=== PATIENT | female | born 1985 | race Caucasian/White ===

== ENCOUNTER 2017-04-20 13:39 | Inpatient (IN) | payer SELFPAY ==
[2017-04-20] VITALS (9 sets, daily range): BP systolic 91–114; BP diastolic 55–71
[~2017-04-20] VITALS: Ht 167.6 cm; Wt 59.0 kg
--- NOTE | 2017-04-20 13:40 | NUR ---
BIB RA C/O RLQ ABD PAIN. PATIENT A/OX 4. ALSO C/O N/V. BREATHING EVEN, BUT LABORED. NO SOB. VITALS STABLE. SAFETY AND COMFORT MEASURES IN PLACE. AWAITING MD ORDERS .
[2017-04-20] MEDS ORDERED: HYDROMORPHONE 1 MG/1 ML DISP.SYRIN ONE ×2 (13:50→15:35)
[2017-04-20] MEDS ORDERED: ONDANSETRON HCL/PF 4 MG/2 ML VIAL ONE (13:50)
--- NOTE | 2017-04-20 13:50 | NUR ---
NEW IV STARTED ON LAC, 20 G. BLOOD DRAWN AND SENT TO LAB.
[2017-04-20 13:56] LABS: BASOPHILS % (AUTO) 0.2 % (0.0-2.0); EOSINOPHILS # (AUTO) 0.1 /CMM (0.0-0.7); EOSINOPHILS % (AUTO) 0.4 % (0.0-6.0); HEMATOCRIT 43 % (33-45); HEMOGLOBIN 14.6 g/dL (11.5-14.8); LYMPHOCYTES % (AUTO) 5.4 % (20.0-44.0); MEAN CORPUSCULAR HEMOGLOBIN 31 PG (26.0-33.0); MEAN CORPUSCULAR HGB CONC 34 g/dl (31.0-36.0); MEAN CORPUSCULAR VOLUME 92 fL (82-100); MONOCYTES # (AUTO) 1.7 /CMM (0.1-1.30); MONOCYTES % (AUTO) 8.8 % (2.0-12.0); NEUTROPHILS # (AUTO) 16.1 /CMM (1.8-8.9); NEUTROPHILS % (AUTO) 85.2 % (43.0-81.0); PLATELET COUNT (AUTO) 266 /CMM (150-450); RDW COEFFICIENT OF VARIATION 12.8 (11.5-15.0); RED BLOOD CELL COUNT(AUTO) 4.71 MIL/uL (4.0-5.2); WHITE BLOOD COUNT (AUTO) 18.9 K/uL (4.3-11.0)
[2017-04-20] MEDS ORDERED: HYDROMORPHONE INJ 2 MG/ML DISP.SYRIN IV ONE (14:00)
[2017-04-20] MEDS ORDERED: IV NS 0.9% 1,000 ML BAG IV ONE ×2 (14:00→15:30)
[2017-04-20] MEDS ORDERED: ONDANSETRON HCL/PF 4 MG/2 ML VIAL IVP ONE (14:00)
--- NOTE | 2017-04-20 14:02 | NUR ---
US TECH AT BEDSIDE.
[2017-04-20 14:08] LABS: INR 0.97 (0.87-1.13); PROTHROMBIN TIME 10.1 SECS (9.5-12.7)
[2017-04-20 14:10] LABS: ALBUMIN 4.1 g/dL (3.4-5.0); BILIRUBIN,DIRECT 0.2 mg/dL (0.0-0.2); BILIRUBIN,TOTAL 0.9 mg/dL (0.2-1.0); CALCIUM, SERUM 8.9 mg/dL (8.5-10.1); CREATININE 0.8 mg/dL (0.6-1.3); POTASSIUM 3.8 mmol/L (3.5-5.1); TOTAL PROTEIN, SERUM 7.4 g/dL (6.4-8.2)
--- NOTE | 2017-04-20 14:30 | NUR ---
urine obtained and sent to lab.
[2017-04-20] MEDS ORDERED: Magnesium 1GM/D5W 100ML PREMIX 200 ML IV ONE (14:36)
[2017-04-20 14:37] LABS: APPEARANCE,URINE Slightly Cloudy (CLEAR); BILIRUBIN,URINE Negative (NEGATIVE); BLOOD, URINE Negative Ery/uL (NEGATIVE); COLOR,URINE Yellow (YELLOW); KETONES,URINE Negative (NEGATIVE); LEUKOCYTE ESTERASE ,URINE Negative (NEGATIVE); NITRITE, URINE Negative (NEGATIVE); PROTEIN,URINE 30 mg/dl (NEGATIVE); UGLUCOSE Negative (NEGATIVE); UROBILINOGEN,URINE 0.2 EU/dL (0.2)
[2017-04-20 14:38] LABS: PH,URINE >9.0 (5.0-8.0)
[2017-04-20 14:40] LABS: BACTERIA,URINE Rare /HPF (None Seen); RBC,URINE 0-2 /HPF (0-2); SQUAMOUS EPITHELIAL CELL,UR Few /HPF (None Seen); WBC,URINE 0-2 /HPF (0-3)
[2017-04-20] MEDS ORDERED: IV NS 0.9% 250 ML IV ONE (14:50)
[2017-04-20] MEDS ORDERED: IOHEXOL-300 100 ML VIAL IV ONE (14:50)
[2017-04-20] MEDS ORDERED: ALBUTEROL FS 2.5 MG/3 ML VIAL.NEB CONTNEB ONE (15:00)
[2017-04-20] MEDS ORDERED: IPRATROPIUM NEB FS 0.5 MG/2.5 ML AMPUL.NEB NEB ONE (15:00)
--- NOTE | 2017-04-20 15:36 | NUR ---
PAGED DR. POWERS FOR CONSULT
[2017-04-20] MEDS: PIPERACILLIN /TAZOBACTAM 3.375 G in IV D5W 50 ML IV ONE ×2 (15:57→15:58)
--- NOTE | 2017-04-20 15:59 | NUR ---
OKAY TO INFUSE ZOSYN OVER 30 MINUTES PER EMELY PEGUERO.
--- NOTE | 2017-04-20 15:59 | NUR ---
Varun benoit in [facility] - 04/20/17 at 1605 by JOHANNA REPORT GIVEN TO Wilder HUYNH RN FOR CONTINUITY OF CARE ON MS 2
[2017-04-20] MEDS ORDERED: HYDROMORPHONE 1 MG/1 ML DISP.SYRIN IV ONE (16:00)
--- NOTE | 2017-04-20 16:05 | NUR ---
REPORT GIVEN TO ALBAN CHOU RN FOR CONTINUITY OF CARE ON MS 2
--- NOTE | 2017-04-20 16:16 | NUR ---
PATIENT TRANSPORTED TO ROOM 200 FOR ADMISSION VIA STRETCHER WITH EMT.
--- NOTE | 2017-04-20 16:30 | NUR ---
MS RN NOTES ADMITTED THIS PATIENT FROM ER, DX APPENDICITIS, PERFORATED, DR. MEDRANO NOTIFIED, AOX4, ON RA, NOT IN ANY DISTRESS, TOLERABLE PAIN ON ABDOMEN. NPO, LEFT AC G20 FLUSHES WELL, SITE CLEAR. AMBULATORY. UNIT ORIENTATION AND USE CALL LIGHT DONE, SAFETY MEASURES IN PLACE. WILL CONT TO MONITOR. PER ER STAFF, THEY NOTIFIED DR. PERLA POWERS FOR SURGICAL CONSULT.
[2017-04-20] MEDS: IV D5/0.45 NACL 1,000 ML IV PRN (17:52)
[2017-04-20] MEDS: MORPHINE SULFATE INJ 2 MG/ML DISP.SYRIN IV PRN (17:57)
[2017-04-20] MEDS ORDERED: Z GUARD REMEDY 2 OZ OINT TP PRN (18:00)
[2017-04-20] MEDS ORDERED: MAGNESIUM HYDROXIDE 30 ML UDC PO PRN (18:00)
[2017-04-20] MEDS ORDERED: ONDANSETRON HCL/PF 4 MG/2 ML VIAL IVP PRN (18:00)
[2017-04-20] MEDS ORDERED: ACETAMINOPHEN 325 MG TABLET PO PRN (18:00)
[2017-04-20] MEDS ORDERED: MAG HYDROX/AL HYDROX/SIMETH 30 ML UDC PO PRN (18:00)
--- NOTE | 2017-04-20 18:27 | NUR ---
MS RN NOTES PATIENT RESTING. ALL ADMITTING ORDERS CARRIED OUT. HELENE TO CALL DR. PERLA POWERS FOR ORDERS.
--- NOTE | 2017-04-20 19:30 | NUR ---
RN NOTE; RECEIVED PT IN BED W/ VISITOR AT THE BED SIDE, BREATHING EVENLY W/ C/O ABD. PAIN. SKIN WARM AND DRY, ON ONGOING IVF HYDRATION. IV SITE INTACT AND PATENT. SX PROCEDURE WAS EXPLAINED TO THE PT W/ UNDERSTANDING. AWAITING FOR THE OR TEAM TO RESEARCH EDITOR THE PT.
--- NOTE | 2017-04-20 19:40 | NUR ---
PT WAS PICKED UP BY SX TEAM TO THE OR FOR SX. IN STABLE CONDITION.
[2017-04-20] MEDS ORDERED: ROCURONIUM BROMIDE 50 MG/5 ML ONE (20:08)
[2017-04-20] MEDS ORDERED: FENTANYL PF 100MCG/2ML AMPUL ONE (20:08)
[2017-04-20] MEDS ORDERED: BUPIVACAINE 0.5 % PF 150 MG/30 ML VIAL ONE (20:11)
[2017-04-20] MEDS ORDERED: LIDOCAINE MPF 1%-EPI 1:200,000 30 ML VIAL IJ ONE (20:12)
[2017-04-20] MEDS ORDERED: ESMOLOL IV ONE (20:38)
[2017-04-20] MEDS ORDERED: PIPERACILLIN /TAZOBACTAM 4.5 G in IV D5W 50 ML IV SCH (21:00)
--- NOTE | 2017-04-20 21:40 | NUR ---
PT BACK TO HER ROOM IN STABLE CONDITION. NO C/O PAIN OR DISCOMFORT AT THIS TIME. VS OBTAINED AND DOCUMENTED. NO RESP. DISTRESS. HOLDING O2 SAT OF 98% ON RA. WILL CONT TO MONITOR. Addendum: 04/20/17 at 2152 by JOHN SCHULTE RN SX SITES CLEAN AND DRY X3. W/ NO BLEEDING OR DISCHARGES OR S/S OF REOPENING. ICE BAG IN PLACE.
[2017-04-20] MEDS: PIPERACILLIN /TAZOBACTAM 3.375 G in IV D5W 50 ML IV SCH (21:53)
--- NOTE | 2017-04-20 21:54 | NUR ---
PER PACU NURSE , ZOSYN DUE AT 1999 WAS GIVEN AT THE OR. MEDICATION WAS GIVEN TO THE OR STAFF UPON PICKING UP THE PT EARLIER.
[2017-04-21 00:53] VITALS: BP 111/67
[2017-04-21] MEDS: MORPHINE SULFATE INJ 2 MG/ML DISP.SYRIN IV PRN ×4 (00:58→19:58)
--- NOTE | 2017-04-21 01:00 | NUR ---
RN NOTE; MORPHINE 2MG GIVEN ORDERED PER PT'S REQUEST FOR C/O SEVERE ABD PAIN. BP: 111/57 AND O2 SAT P7% ON RA. WILL CONT TO MONITOR.
[2017-04-21] MEDS: PIPERACILLIN /TAZOBACTAM 3.375 G in IV D5W 50 ML IV SCH ×4 (01:04→19:58)
--- NOTE | 2017-04-21 07:30 | NUR ---
MS RN AM NOTES DOCUMENTATIONS INSIDE CHART.
[2017-04-21 08:00] VITALS: BP 108/76
[2017-04-21] MEDS: IV D5/0.45 NACL 1,000 ML IV PRN (09:23)
--- NOTE | 2017-04-21 09:30 | NUR ---
MS RN NOTES ADMINISTERED DUE MEDS
[2017-04-21 10:34] LABS: ALBUMIN 3.4 g/dL (3.4-5.0); BILIRUBIN,TOTAL 1.3 mg/dL (0.2-1.0); CREATININE 0.8 mg/dL (0.6-1.3); MAGNESIUM 1.5 mg/dL (1.8-2.4); PHOSPHORUS 3.7 mg/dL (2.5-4.9); POTASSIUM 4.2 mmol/L (3.5-5.1); TOTAL PROTEIN, SERUM 6.8 g/dL (6.4-8.2)
[2017-04-21 11:11] LABS: BASOPHILS % (AUTO) 0.1 % (0.0-2.0); HEMATOCRIT 41 % (33-45); HEMOGLOBIN 13.9 g/dL (11.5-14.8); LYMPHOCYTES # (AUTO) 0.9 /CMM (0.8-4.8); LYMPHOCYTES % (AUTO) 4.4 % (20.0-44.0); MEAN CORPUSCULAR HEMOGLOBIN 31 PG (26.0-33.0); MEAN CORPUSCULAR HGB CONC 34 g/dl (31.0-36.0); MEAN CORPUSCULAR VOLUME 93 fL (82-100); MONOCYTES % (AUTO) 4.6 % (2.0-12.0); NEUTROPHILS # (AUTO) 19.5 /CMM (1.8-8.9); NEUTROPHILS % (AUTO) 90.9 % (43.0-81.0); PLATELET COUNT (AUTO) 250 /CMM (150-450); RDW COEFFICIENT OF VARIATION 12.9 (11.5-15.0); RED BLOOD CELL COUNT(AUTO) 4.44 MIL/uL (4.0-5.2); WHITE BLOOD COUNT (AUTO) 21.4 K/uL (4.3-11.0)
--- NOTE | 2017-04-21 12:02 | NUR ---
MS RN NOTES PATIENT AFTER EATING C/O OF SEVER PAIN. PAIN MEDICATIONS WAS ADMINISTERED A WHILE AGO. PATIENT STATED, SHE CAN NOT BREATH. PLACED ON O2 AT 2 LPM. SHE SAID SHE FEEL BLOATED AFTER EATING. VITALS CHECKED BP 136/79 RR 18 AK 89 O2 SAT 99%. AFTER REPOSITIONING, PATIENT IS OKAY. ENCOURAGED TO TURN SLOWLY FROM SIDE TO SIDE. AND USE OF INSPIROMETER. VERBALIZED UNDERSTANDING.
[2017-04-21] MEDS: Magnesium 1GM/D5W 100ML PREMIX 100 ML IV SCH ×2 (14:15→15:27)
--- NOTE | 2017-04-21 14:15 | NUR ---
MS RN NOTES MAGNESIUM BAG #1 STARTED. ZOSYN IV STARTED.
[2017-04-21] MEDS: LORAZEPAM 0.5 MG TABLET PO PRN ×2 (14:25→21:13)
--- NOTE | 2017-04-21 15:30 | NUR ---
MS RN NOTES MAGNESIUM BAG #2 STARTED. PATIENT WITH FRIENDS AT BEDSIDE, PATIENT FOUND DRINKING MILKSHAKE ALMOST DONE. EXPLAINED TO FRIEND LAVERN THAT SHE WAS WRITHING IN PAIN EARLIER AND COULD ONLY HAVE CLEAR LIQUID FOR NOW PER MD BUT PATIENT SAID ITS OKAY.
--- NOTE | 2017-04-21 15:32 | NUR ---
MS RN NOTES URINE SPECIMEN COLLECTED AND CALLED IN TO LABORATORY SPOKE WITH SHANNAN.
[2017-04-21 16:00] VITALS: BP 101/56
--- NOTE | 2017-04-21 16:48 | NUR ---
MS RN NOTES DR. Krys POWERS AT BEDSIDE.
[2017-04-21 17:10] LABS: APPEARANCE,URINE SL CLOUDY (CLEAR); BILIRUBIN,URINE NEGATIVE (NEGATIVE); BLOOD, URINE NEGATIVE Ery/uL (NEGATIVE); COLOR,URINE YELLOW (YELLOW); KETONES,URINE NEGATIVE (NEGATIVE); LEUKOCYTE ESTERASE ,URINE NEGATIVE (NEGATIVE); NITRITE, URINE NEGATIVE (NEGATIVE); PROTEIN,URINE NEGATIVE (NEGATIVE); UGLUCOSE NEGATIVE (NEGATIVE); UROBILINOGEN,URINE 0.2 EU/dL (0.2)
[2017-04-21 18:00] VITALS: BP 101/56
--- NOTE | 2017-04-21 18:17 | NUR ---
MS RN NOTES PATIENT RESTING IN BED, OCCASIONALLY OUT OF BED, WALKING IN THE HALLWAY, AO X3, ON RA, NOT IN ANY DISTRESS, UNLABORED RESPIRATION. DENIES PAIN AT THIS TIME. KEPT ON CLEAR LIQUID DIET FOR NOW. SEEN BY DR. MEDRANO AND DR. Virgil POWERS. IVF ONGOING TO LEFT AC, SITE CLEAR. ALL NEEDS MET AT THIS TIME. NO OTHER SIGNIFICANT CHANGE IN CONDITION. CALL LIGHT WITHIN REACH. WILL ENDORSE TO NEXT SHIFT FOR YOSELIN.
--- NOTE | 2017-04-21 19:30 | NUR ---
MS RN NOTE: PATIENT RESTING IN BED, NO ACUTE DISTRESS NOTED. BREATHING EVEN AND UNLABORED, NO SOB NOTED. IV TO LAC IN PLACE, INFUSING D5 1/2NS AT 75ML/HR. INCENTIVE SPIROMETER AT BEDSIDE, ENCOURAGE PATIENT TO USE AT LEAST 10 TIMES EVERY HOURS TOLERATED. BED LOCKED AND IN LOWEST POSITION, CALL LIGHT IN REACH. WILL CONTINUE TO MONITOR.
[2017-04-21 20:00] VITALS: BP 100/54
--- NOTE | 2017-04-21 20:15 | NUR ---
MS RN NOTE: PATIENT COMPLAIN OF ABD PAIN 8/, MORPHINE 2MG IV GIVEN PER MD ORDER. WILL CONTINUE TO MONITOR.
--- NOTE | 2017-04-21 21:30 | NUR ---
MS RN NOTE: PATIENT COMPLAINS OF BEING ANXIOUS. ATIVAN 0.5MG ORAL GIVEN PER MD ORDER. WILL CONTINUE TO MONITOR.
[2017-04-22] MEDS: PIPERACILLIN /TAZOBACTAM 3.375 G in IV D5W 50 ML IV SCH ×4 (01:50→20:02)
[2017-04-22] MEDS: IV D5/0.45 NACL 1,000 ML IV PRN (01:50)
[2017-04-22] MEDS: HYDROCODONE/APAP 5/325MG 1 EACH TABLET PO PRN ×4 (03:53→23:31)
--- NOTE | 2017-04-22 04:00 | NUR ---
MS RN NOTE: PATIENT COMPLAIN OF ABD PAIN /, NORCO 5/325MG ORAL GIVEN PER MD ORDER. WILL CONTINUE TO MONITOR.
--- NOTE | 2017-04-22 06:20 | NUR ---
MS RN NOTE: PATIENT RESTING IN BED, NO ACUTE DISTRESS NOTED. BREATHING EVEN AND UNLABORED, NO SOB NOTED. IV TO LAC IN PLACE, INFUSING D5 1/2NS AT 75ML/HR. BED LOCKED AND IN LOWEST POSITION, CALL LIGHT IN REACH. WILL ENDORSE TO DAY NURSE TO CONTINUE WITH PLAN OF CARE.
[2017-04-22 06:33] LABS: BASOPHILS # (AUTO) 0.1 /CMM (0.0-0.2); BASOPHILS % (AUTO) 0.5 % (0.0-2.0); EOSINOPHILS # (AUTO) 0.1 /CMM (0.0-0.7); EOSINOPHILS % (AUTO) 1.1 % (0.0-6.0); HEMATOCRIT 37 % (33-45); HEMOGLOBIN 12.2 g/dL (11.5-14.8); LYMPHOCYTES # (AUTO) 2.5 /CMM (0.8-4.8); LYMPHOCYTES % (AUTO) 22.6 % (20.0-44.0); MEAN CORPUSCULAR HEMOGLOBIN 32 PG (26.0-33.0); MEAN CORPUSCULAR HGB CONC 34 g/dl (31.0-36.0); MEAN CORPUSCULAR VOLUME 94 fL (82-100); MONOCYTES # (AUTO) 1.2 /CMM (0.1-1.30); MONOCYTES % (AUTO) 10.4 % (2.0-12.0); NEUTROPHILS # (AUTO) 7.3 /CMM (1.8-8.9); NEUTROPHILS % (AUTO) 65.4 % (43.0-81.0); PLATELET COUNT (AUTO) 211 /CMM (150-450); RED BLOOD CELL COUNT(AUTO) 3.88 MIL/uL (4.0-5.2); WHITE BLOOD COUNT (AUTO) 11.2 K/uL (4.3-11.0)
[2017-04-22 06:57] LABS: CALCIUM, SERUM 7.5 mg/dL (8.5-10.1); CREATININE 0.8 mg/dL (0.6-1.3); MAGNESIUM 2.1 mg/dL (1.8-2.4); PHOSPHORUS 2.6 mg/dL (2.5-4.9); POTASSIUM 3.6 mmol/L (3.5-5.1)
--- NOTE | 2017-04-22 08:08 | NUR ---
RN NOTES RECEIVED PT. A/OX4. PT IS STABLE AND RESTING IN BED. NO S/S OF RESPIRATORY DISTRESS OR SOB. NO C/O PAIN AT THIS TIME. PT IS ON O2 2L/MIN VIA NC. IV ACCESS LOCATED ON LEFT AC 20G, RUNNING D5 1/2 NS AT 75 ML/HR. SAFETY MEASURES IN PLACE, CALL LIGHT WITHIN REACH. WILL CONTINUE TO MONITOR.
[2017-04-22 08:14] VITALS: BP 91/67
[2017-04-22] MEDS: LORAZEPAM 0.5 MG TABLET PO PRN (14:35)
[2017-04-22 16:23] VITALS: BP 108/81
--- NOTE | 2017-04-22 18:23 | NUR ---
RN NOTES PT IS AWAKE AND RESTING IN BED. A/O X 4, NO S/S OF DISTRESS OR SOB. NO C/O PAIN AT THIS TIME. PT AMBULATES UP AND DOWN CORMIER X4 FOR THE DAY. CLEAR LIQUID DIET ADVANCED TO REGULAR DIET PER MD ORDER. ALL NEEDS ANTICIPATED AND MET. SAFETY MEASURES IN PLACE, CALL LIGHT WITHIN REACH. WILL ENDORSE TO ADOPTION MANAGER FOR YOSELIN.
--- NOTE | 2017-04-22 19:30 | NUR ---
RN INITIAL NOTES: RECEIVED REPORT FROM [place] RN, PT AWAKE, A/O X4, STATED HER PAIN IS TOLERABLE AT 2/10, S/P LAP APPY WITH WASH OUT ON 04/[address] Virgil POWERS, DERMABOND IN PLACED IN ABDOMEN AREA, NO ACTIVE BLEEDING, NO REDNESS OR DRAINAGE NOTED, PT REFUSED ICED PACK. LEFT AC IV ACCESS PATENT AND FLUSHING WELL, ON HL, PT REFUSED IVF, MD AWARE, PT TOLERATING PO INTAKE, SAFETY PRECAUTIONS FOR FALL INITAITED CALL LIGHT IN REACH, WILL CONTINUE TO MONITOR
[2017-04-22 20:00] VITALS: BP 103/68
--- NOTE | 2017-04-22 23:32 | NUR ---
PRN NORCO: PT C/O 10/10 ABDOMINAL PAIN, REQUESTING FOR NORCO, PRN NORCO 5/325 MG TAB PO ADMINISTERED TO THE PT AT THIS TIME, WILL CONTINUE TO MONITOR AND REASSES
[2017-04-23] MEDS: LORAZEPAM 0.5 MG TABLET PO PRN (00:02)
--- NOTE | 2017-04-23 00:04 | NUR ---
PRN ATIVAN: PT STATED SHE'S FEELING ANXIOUS AND REQUESTING FOR ATIVAN, PRN ATIVAN 0.5MG TAB PO ADMINISTER AT THIS TIME,
[2017-04-23] MEDS: PIPERACILLIN /TAZOBACTAM 3.375 G in IV D5W 50 ML IV SCH ×3 (01:50→13:59)
--- NOTE | 2017-04-23 06:19 | NUR ---
RN NOTES: PT REFUSED FOR LAB DRAW, INFORMED SUPERVISOR CUSTOMER RECORDS DIVISION TO COME BACK AFTER BREAKFAST
--- NOTE | 2017-04-23 06:51 | NUR ---
RN CLOSING NOTES: PT IN BED, ASLEEP, PT TOLERATED REGULAR DIET WELL, NO N/V NOTED, DERMABOND ON ABDOMEN AREA REMAINS FREE FROM REDNESS, DRAINAGE OR BLEEDING. IV ACCESS REMAINS PATENT AND FLUSHING WELL, ON HL. VS REMAINS STABLE, NEEDS ANTICIPATED, FOR POSSIBLE DC TODAY, EXIT CARE COMPLETED. BED BRAKES REMAINS ENGAGED, CALL LIGHT IN REACH, WILL ENDORSE TO DAY RN FOR YOSELIN.
--- NOTE | 2017-04-23 07:10 | NUR ---
ms rn initial notes Received patient in bed, asleep, head of bed elevated, no SOB or distress noted, on room air with 02 saturation of 98%. No complaint of pain or discomfort noted. Verbally responsive and able to make needs known. IV intact and patent HL only. Kept patient clean and comfortable in bed, call light with in patient reach, will continue to monitor accordingly.
[2017-04-23 08:00] VITALS: BP_SYST 101; BP_SYST 126; BP_DIAS 67; BP_DIAS 77
[2017-04-23] MEDS: HYDROCODONE/APAP 5/325MG 1 EACH TABLET PO PRN ×2 (08:00→15:39)
[2017-04-23 08:50] LABS: BASOPHILS # (AUTO) 0.1 /CMM (0.0-0.2); EOSINOPHILS # (AUTO) 0.3 /CMM (0.0-0.7); EOSINOPHILS % (AUTO) 3.6 % (0.0-6.0); HEMATOCRIT 40 % (33-45); HEMOGLOBIN 13.7 g/dL (11.5-14.8); LYMPHOCYTES # (AUTO) 2.4 /CMM (0.8-4.8); LYMPHOCYTES % (AUTO) 30.8 % (20.0-44.0); MEAN CORPUSCULAR HEMOGLOBIN 32 PG (26.0-33.0); MEAN CORPUSCULAR HGB CONC 34 g/dl (31.0-36.0); MEAN CORPUSCULAR VOLUME 93 fL (82-100); MONOCYTES # (AUTO) 0.8 /CMM (0.1-1.30); MONOCYTES % (AUTO) 10.8 % (2.0-12.0); NEUTROPHILS # (AUTO) 4.2 /CMM (1.8-8.9); NEUTROPHILS % (AUTO) 53.8 % (43.0-81.0); PLATELET COUNT (AUTO) 245 /CMM (150-450); RDW COEFFICIENT OF VARIATION 12.9 (11.5-15.0); RED BLOOD CELL COUNT(AUTO) 4.31 MIL/uL (4.0-5.2); WHITE BLOOD COUNT (AUTO) 7.8 K/uL (4.3-11.0)
[2017-04-23 08:58] LABS: CALCIUM, SERUM 8.1 mg/dL (8.5-10.1); CREATININE 0.8 mg/dL (0.6-1.3); MAGNESIUM 1.8 mg/dL (1.8-2.4); PHOSPHORUS 3.6 mg/dL (2.5-4.9); POTASSIUM 3.5 mmol/L (3.5-5.1)
--- NOTE | 2017-04-23 16:10 | NUR ---
ms uppers edge burnisher notes Discharge instructions given to patient and able to understand instructions. Discontinued IV and pressured applied. Refused flu vaccine, explained the risk and benefits x 3 and still refused vaccination. Pneumonia vaccine not given due to <65 years old. Skin is intact. Patient friend came to pick her up. Patient left the hospital in stable condition accompanied by friend and OUTSIDE MACHINIST HELPER assigned via wheelchair. Vital sings checked and recorded. Informed patient to follow up with Dr. Chevy Ruff (surgeon) in 1-2 weeks and amenable. MD and charge nurse aware.
== END 2017-04-23 16:20 | disposition home or self-care (01) | DRG 340 ==
LOC: ER 13:42 → MEDSG2 16:21
PROVIDERS: ADMIT Internal Medicine; ATTEND Internal Medicine
DX: K35.3 Acute appendicitis with localized peritonitis (principal); E83.51 Hypocalcemia; K43.9 Ventral hernia without obstruction or gangrene; F12.20 Cannabis dependence, uncomplicated; D72.829 Elevated white blood cell count, unspecified
CPT/HCPCS: 36415; 76856-TC; 80048-TC; 80053-TC; 80061-TC; 80076-TC; 81000-TC; 83605-TC; 83690-TC; 83735-TC; 84100-TC; 84703-TC; 85025-TC; 85730-TC; 86850-TC; 87040-TC; 87081-TC; 88304-TC; 88305-TC; A4606; J1100; J1170; J1885; J2270; J2405; J2543; J2704; J2710; J3010; J3475; J3490; J7030; J7050; J7060; Q9967; Z7610